=== PATIENT | female | born 1980 | race Caucasian/White ===

== ENCOUNTER → 2017-10-31 | Outpatient (CLI) | payer BC ==
[~2017-10-31] MED LIST: Z.0.LEXAPRO10 MG
--- NOTE | 2017-10-31 18:42 | Diagnostic Imaging Report ---
PROCEDURE:X-RAY ABDOMEN - KUB COMPARISON:None. INDICATIONS:ABDOMINAL PAIN FINDINGS: One view of the abdomen (AP supine). There is a non-obstructive bowel-gas pattern. There is a moderate amount of stool throughout the colon. There has been a cholecystectomy. There are no calcifications projected over the renal shadows, expected course of the ureters or bladder. There are no acute osseous abnormalities. The lung bases are clear. CONCLUSION: Nonobstructive bowel gas pattern Dictated by: Du Phelps M.D. on 10/31/2017 at 18:51 Electronically approved by: Du Phelps M.D. on 10/31/2017 at 18:51
== END ==
LOC: RAD 17:19
PROVIDERS: ATTEND Internal Medicine Gastroenterology
DX: R10.32 Left lower quadrant pain (principal)
CPT/HCPCS: 74018